=== PATIENT | female | born 1935 | race Caucasian/White ===

== ENCOUNTER → 2017-08-21 | Outpatient (CLI) | payer MEDICARE, OTHER ==
[2017-08-21 12:44] VITALS: PULSE 76; BMI 28.7
--- NOTE | 2017-08-21 13:33 | P.GSHP ---
History of Present Illness H&P Date: 08/21/17 Chief Complaint: breast exam The patient is an 82 year old white female status post bilateral mammogram on 02-10 which was benign. Follow up in 1 year recommended. Patient has no complaints. Patient is status post left breast lumpectomy in 1999, she had radiation. No chemotherapy. She had tamoxifen for 5 years. family history: 1. maternal aunt breast cancer 2. mother pancreatic cancer past surgical histroy: 1. left breast lumpectomy 2. complete hysterectomy took ovaries, no cancer 3. gallbladder medical history: 1. HTN 2. diabetic 3. high cholesterol - Constitutional Constitutional: Denies chills, Denies fever - EENT Eyes: denies blurred vision Ears: deny: decreased hearing Ears, nose, mouth and throat: Denies headache, Denies sore throat - Breasts Breasts: bilateral: as per HPI - Cardiovascular Cardiovascular: Reports high blood pressure - Respiratory Respiratory: Denies cough, Denies 7 - Gastrointestinal Gastrointestinal: Denies abdominal pain, Denies diarrhea, Denies nausea, Denies vomiting - Genitourinary (Female) Genitourinary: Reports as per HPI - Musculoskeletal Musculoskeletal: Denies myalgias - Integumentary Comment: pre-cancers removed by dermatology - Neurological Neurological: Denies numbness, Denies weakness - Psychiatric Psychiatric: Denies anxiety, Denies depression - Endocrine Endocrine: Denies fatigue, Denies weight change - Hematologic/Lymphatic Comment: low dose aspirin - Allergic/Immunologic Comment: allergic to mold Allergic/Immunologic: Reports seasonal allergies Past Medical History Past Medical History: Cancer, Diabetes Mellitus, Hypertension Additional Past Medical History / Comment(s): Left breast cancer History of Any Multi-Drug Resistant Organisms: None Reported Past Surgical History: Appendectomy, Breast Surgery, Hysterectomy Additional Past Surgical History / Comment(s): Gall Bladder 30 years ago, Hysterectomy 25 years ago, Breast surgery 1999 Smoking Status: Never smoker Medications and Allergies Home Medications Medication Instructions Recorded Confirmed Type Aspirin [Adult Low Dose Aspirin EC] 81 tbsp PO DAILY 08/21/17 08/21/17 History Atenolol [Tenormin] 50 tab PO DAILY 08/21/17 08/21/17 History Simvastatin [Zocor] 20 tab PO DAILY 08/21/17 08/21/17 History metFORMIN HCL [Glucophage] 500 tab PO DAILY 08/21/17 08/21/17 History Allergies Allergy/AdvReac Type Severity Reaction Status Date / Time Penicillins Allergy Severe Rash/Hives Unverified 08/21/17 13:03 Surgical - Exam Vital Signs Pulse Pulse Ox 76 98 08/21/17 12:35 08/21/17 12:35 - General well developed, well nourished, no distress - Eyes normal ocular movement - ENT no hearing loss, no congestion - Neck no masses, trachea midline - Respiratory normal respiratory effort, clear to auscultation - Cardiovascular Rhythm: regular Heart Sounds: normal: S1, S2 - Abdomen Abdomen: soft, non tender, no guarding, no rigid, no rebound - Integumentary skin changes left breast related to prior radiation right breast: No dominant masses or concern and multiple positional exam Right axilla: No adenopathy of concern Left breast: Post changes from lumpectomy and radiation therapy no dominant masses or nodules of concern Left axilla: No adenopathy of concern Patient has some minimal excoriation under the breast believed related to moisture she is going to use powder if this gets worse she will call prescribe an antifungal agent - Neurologic no disoriented, no combative - Musculoskeletal normal gait, normal posture - Psychiatric oriented to time, oriented to person, oriented to place, speech is normal, memory intact Results 1. results of mammogram reviewed, 08-21-17 Assessment and Plan Assessment: Impression/plan: 1. Patient is status post left breast lumpectomy and radiation therapy approximately 2000 Evidence of recurrent cancer 2. Recent mammogram no abnormalities of concern Plan: 1. Repeat bilateral diagnostic mammogram and physician exam in 1 year Cc: Dr. Hoang
== END | disposition home or self-care (01) ==
LOC: WWCWWP 12:24
PROVIDERS: ATTEND Surgery
DX: Z88.0 Allergy status to penicillin (principal); Z85.3 Personal history of malignant neoplasm of breast; Z79.82 Long term (current) use of aspirin

== ENCOUNTER → 2017-10-02 | Outpatient (CLI) | payer MEDICARE, OTHER ==
--- NOTE | 2017-10-02 11:26 | PN ---
PROGRESS NOTE DATE OF SERVICE: 10/24/2017 An 82-year-old lady who has been followed in the Sleep Center for treatment of obstructive sleep apnea-hypopnea syndrome. The patient successfully continued to use her equipment every night without any significant problems. No snoring with the machine. [place] Sleepiness Scale today is 3. No symptoms of excessive daytime sleepiness. I checked patient's CPAP unit. CPAP pressure is 9 cm of water. The patient using equipment 100% of the time more than 4 hours. Average usage is 8.1, are our. Many occasions metformin We will write atenolol, simvastatin baby aspirin during. PHYSICAL EXAM: Patient in no distress. BP 153/73, HR 76, RR 16, height 4 feet 11 inches, weight 145.23 pounds less than during the visit 1 year ago. Temperature 97.3. Oxygen saturation at room air 97%. Body mass index 29.2. Oropharynx extremely low position of soft palate. ABDOMEN: Obese under physical exam normal just: My template. IMPRESSION: 1. Obstructive sleep apnea-hypopnea syndrome. Patient demonstrated 100% compliance with treatment benefitting from treatment. 2. Overweight. 3. Diabetes mellitus. 4. Hypertension. 5. Hyperlipidemia. 6. Status post cholecystectomy. 7. Status post left breast lumpectomy. 8. Status post hysterectomy. 9. History of allergy. PLAN: 1. Patient will continue to use your CPAP equipment every night for the whole night. 2. Prescription for the ComfortGel Blue mask via the head cap and other necessary supplies. 3. Sleep hygiene with regular time in bed for at least 8 hours. 4. No driving if feeling sleepiness. 5. Watching and losing weight. 6. Followup visit in 1 year or earlier if patient has any problems. Thank you very much for allowing me to participate in the management of your patient. Sincerely, Temo Torres MD, PhD, FAASM Diplomat of [employer] Chemical Project Engineer of [facility] [place] MMODL / IJN: [id number] /
== END | disposition home or self-care (01) ==
LOC: SLEEP 09:48
PROVIDERS: ATTEND Internal Medicine
DX: G47.33 Obstructive sleep apnea (adult) (pediatric) (principal); E66.3 Overweight; E11.9 Type 2 diabetes mellitus without complications; I10 Essential (primary) hypertension; E78.5 Hyperlipidemia, unspecified; Z90.49 Acquired absence of other specified parts of digestive tract; Z90.12 Acquired absence of left breast and nipple; Z90.710 Acquired absence of both cervix and uterus; Z91.09 Other allergy status, other than to drugs and biological substances; Z99.89 Dependence on other enabling machines and devices

== ENCOUNTER → 2018-10-01 | Outpatient (CLI) | payer MEDICARE, OTHER ==
[2018-10-01 08:49] VITALS: BP 157/64; PULSE 72; RESP 18; TEMP 97.6; BMI 27.9
--- NOTE | 2018-10-01 09:36 | P.PN ---
Subjective Progress Note Date: 10/01/18 Principal diagnosis: left breast cancer The patient is an 83 year old white female status post bilateral mammogram on 08-14-18 which was benign. Follow up in 1 year recommended. Patient has no complaints. Patient is status post left breast lumpectomy in 1999, she had radiation. No chemotherapy. She had tamoxifen for 5 years. family history: 1. maternal aunt breast cancer 2. mother pancreatic cancer Hormonal History: menarche: 14 , bresat fed: no, first at 22 menopauase: hysterectomy in 40's , fibroids no cancer BCP: none hormones: 3 years, tamoxifen for 5 years past surgical histroy: 1. left breast lumpectomy 2. complete hysterectomy took ovaries, no cancer 3. gallbladder medical history: 1. HTN 2. diabetic 3. high cholesterol - Constitutional Constitutional: Denies chills, Denies fever - EENT Eyes: cataracts bilateral Ears: deny: decreased hearing Ears, nose, mouth and throat: Denies headache, Denies sore throat - Breasts Breasts: bilateral: as per HPI - Cardiovascular Cardiovascular: Reports high blood pressure - Respiratory Respiratory: Denies cough, Denies smoking - Gastrointestinal Gastrointestinal: Denies abdominal pain, Denies diarrhea, Denies nausea, Denies vomiting - Genitourinary (Female) Genitourinary: Reports as per HPI - Musculoskeletal Musculoskeletal: Denies myalgias - Integumentary Comment: pre-cancers removed by dermatology - Neurological Neurological: Denies numbness, Denies weakness - Psychiatric Psychiatric: Denies anxiety, Denies depression - Endocrine Endocrine: Denies fatigue, Denies weight change - Hematologic/Lymphatic Comment: low dose aspirin - Allergic/Immunologic Comment: allergic to mold Allergic/Immunologic: Reports seasonal allergies Past Medical History Past Medical History: Cancer, Diabetes Mellitus, Hypertension Additional Past Medical History / Comment(s): Left breast cancer History of Any Multi-Drug Resistant Organisms: None Reported Past Surgical History: Appendectomy, Breast Surgery, Hysterectomy Additional Past Surgical History / Comment(s): Gall Bladder 30 years ago, Hysterectomy 25 years ago, Breast surgery 1999 Smoking Status: Never smoker Social History: smoke: none alcohol: none drugs: none Objective - Vital Signs Vital signs: Vital Signs Temp 97.6 F 10/01/18 08:43 Pulse 72 10/01/18 08:43 Resp 18 10/01/18 08:43 BP 157/64 10/01/18 08:43 Pulse Ox 94 L 10/01/18 08:43 Intake & Output 09/30/18 10/01/18 10/01/18 18:59 06:59 18:59 Weight 64.864 kg - Exam BMI 27.9 - Constitutional General appearance: Present: average body habitus, cooperative - EENT Eyes: Present: EOMI ENT: Present: hearing grossly normal - Neck Neck: Present: normal ROM - Respiratory Respiratory: bilateral: CTA - Cardiovascular Rhythm: regular Heart sounds: normal: S1, S2 - Gastrointestinal General gastrointestinal: Present: soft - Integumentary Integumentary: Present: normal turgor - Musculoskeletal Musculoskeletal: Present: gait normal - Psychiatric Psychiatric: Present: A&O x's 3, appropriate affect, intact judgment & insight - Additional findings Additional findings: Physical examination: Right breast: Well-healed scar right breast, multi-positional exam no dominant masses or nodules of concern, fibrocystic changes Right axilla: No adenopathy of concern Left breast: Asymmetric in size related to lumpectomy and radiation therapy, well-healed scar, no dominant masses or nodules of concern Left axilla: No adenopathy of concern Assessment and Plan Assessment: Impression: 1. HTN 2. diabetic 3. high cholesterol 4. Status post left breast lumpectomy and radiation therapy approximately 20 years ago 5. No evidence of recurrent cancer 6. Family history of cancer 7. Family history of breast cancer Plan: 1. Medical management of medical conditions 2. Continue close surveillance related to breast 2. Repeat bilateral mammogram and exam in 1 year CC: Dr. Hoang
== END | disposition home or self-care (01) ==
LOC: WWCWWP 08:32
PROVIDERS: ATTEND Surgery
DX: Z53.9 Procedure and treatment not carried out, unspecified reason (principal)

== ENCOUNTER → 2018-10-08 | Outpatient (CLI) | payer MEDICARE, OTHER ==
--- NOTE | 2018-10-08 12:37 | SFUN ---
SLEEP CENTER FOLLOW UP NOTE DATE OF SERVICE: 10/08/2018 An 83-year-old lady has been followed in the Sleep Center for treatment of obstructive sleep apnea-hypopnea syndrome. Patient continued to use her CPAP equipment every night for the whole night, but has awakenings around 4:30 am for no reason. She believes that she may have some abnormalities of respiration at that time. [place] Sleepiness Scale is 3. I checked her CPAP unit. CPAP pressure is 9 cm of water. Patient is using equipment every night 100%, average time of usage 8 hours per night. MEDICATIONS: , metformin, atenolol, simvastatin, baby aspirin. PHYSICAL EXAM: lady without distress. BP 149/78, HR 74, RR 16, height 4 and 10-1/2 inches, weight 144 pounds, body mass index 28.5, temperature 97.6, oxygen saturation at room air 98%. OROPHARYNX: Extremely low soft palate, Mallampati 4. ABDOMEN: Slightly obese. IMPRESSION: 1. Obstructive sleep apnea-hypopnea syndrome. Patient demonstrated 100% compliance with treatment, but has awakenings from sleep while using her CPAP equipment. Last sleep study more than 5 years ago. CPAP unit is old, more than 5 years. 2. Hypertension. 3. Diabetes mellitus. 4. Hyperlipidemia. 5. History of allergy. 6. Status post cholecystectomy. 7. Status post hysterectomy. PLAN: 1. CPAP titration for evaluation of effective CPAP pressure at the present time, also to refit patient with a mask. 2. Losing weight. 3. Sleep hygiene with regular time in bed for 8 hours. 4. Precautions related to driving. No driving if feeling sleepiness. Thank you very much for allowing me to participate in the management of your patient. Sincerely, Temo Torres MD, PhD, FAASM Diplomat of [employer] Special[employer] Board of Internal Medicine Consumer Loan Underwriter of [facility] [place] MMODL / IJN: [id number] /
== END | disposition home or self-care (01) ==
LOC: SLEEP 11:33
PROVIDERS: ATTEND Internal Medicine
DX: G47.33 Obstructive sleep apnea (adult) (pediatric) (principal); I10 Essential (primary) hypertension; E11.9 Type 2 diabetes mellitus without complications; E78.5 Hyperlipidemia, unspecified; Z90.49 Acquired absence of other specified parts of digestive tract; Z90.710 Acquired absence of both cervix and uterus; Z91.09 Other allergy status, other than to drugs and biological substances; Z99.89 Dependence on other enabling machines and devices

== ENCOUNTER → 2019-01-28 | Outpatient (CLI) | payer MEDICARE, OTHER ==
--- NOTE | 2019-01-29 08:37 | PN ---
PROGRESS NOTE DATE OF SERVICE: 01/28/2019 An 83-year-old lady has been followed in the Sleep Center for treatment of obstructive sleep apnea-hypopnea syndrome. Recently the patient received new CPAP unit. She is using equipment every night for the whole night. No significant problems with the mask creating pressure or humidification. She is using ComfortGel nasal mask petite size. I checked her CPAP unit. CPAP pressure is 10 cm of water. Usage is 30 out of 30 nights for more than 4 hours, her average use is 7.8 hours per night. CPAP pressure is 10 cm of water. Leak is 24 liters/minute which is borderline for the nasal mask. Apnea- hypopnea index is 2.4 which is perfect. MEDICATIONS: Metformin, atenolol, simvastatin, baby aspirin, vitamins. PHYSICAL EXAM: During physical examination, the patient is in no distress. BP 170/76, HR 80, RR 12, weight 146 pounds, temperature 98.2, oxygen saturation at room air 99%. OROPHARYNX: Extremely low soft palate, Mallampati 4. HEENT: PERRLA, EOMI, evaluation of oropharynx showed tongue protrudes midline. NECK: Supple, no JVD. Thyroid is not palpable. LUNGS: Clear to percussion and to auscultation. Good air exchange. No wheezing or rhonchi. HEART: S1, S2 regular. No murmurs, gallops, or rubs. ABDOMEN: Soft and nontender. Bowel sounds are present. No organomegaly appreciated. Slightly obese. EXTREMITIES: No clubbing or cyanosis. DIMENSIONAL ENGINEER: Awake, alert, and oriented X3. Cranial nerves 2 to 7 intact. There is no fasciculation or atrophy. noted. No focal deficits observed. IMPRESSION: 1. Obstructive sleep apnea-hypopnea syndrome. Patient demonstrated great compliance with treatment, benefiting from treatment. 2. Hypertension. 3. Hyperlipidemia. 4. Diabetes mellitus. 5. History of allergy. 6. Status post cholecystectomy. 7. Status post hysterectomy. PLAN: 1. Prescription for all necessary CPAP supplies including heating tube, mask, filters. I will maintain all necessary prescriptions. 2. The patient will continue to use CPAP equipment every night for the whole night. 3. Watching weight. 4. Sleep hygiene with regular time in bed for at least 7.5 to 8 hours. 5. No driving if feeling sleepiness. 6. Followup visit in one year or earlier if patient has any problems. Thank you very much for allowing me to participate in the management of your patient. Sincerely, Temo Torres MD, PhD, FAASM Diplomat of [employer] Nail Maker of [facility] [place] MMJANIE / LORETTA: [id number] /
== END | disposition home or self-care (01) ==
LOC: SLEEP 13:21
PROVIDERS: ATTEND Internal Medicine
DX: Z53.9 Procedure and treatment not carried out, unspecified reason (principal)

== ENCOUNTER → 2019-09-03 | Outpatient (CLI) | payer MEDICARE, OTHER ==
[2019-09-03 11:01] VITALS: BP 177/75; PULSE 73; RESP 20; TEMP 98.3
--- NOTE | 2019-09-03 11:15 | P.PN ---
Subjective Progress Note Date: 09/03/19 Principal diagnosis: Fibers cystic breasts changes The patient is an 84 year old white female status post bilateral mammogram on 08-20-19 which was benign BIRADS 2. Follow up in 1 year recommended. Patient has no complaints. Patient is status post left breast lumpectomy in 1999, she had radiation. No chemotherapy. She had tamoxifen for 5 years. family history: 1. maternal aunt breast cancer 2. mother pancreatic cancer past surgical histroy: 1. left breast lumpectomy 2. complete hysterectomy took ovaries, no cancer 3. gallbladder medical history: 1. HTN 2. diabetic 3. high cholesterol Social History: smoke: none alcohol: none drugs: none - Constitutional Constitutional: Denies chills, Denies fever - EENT Eyes: denies blurred vision Ears: deny: decreased hearing Ears, nose, mouth and throat: Denies headache, Denies sore throat - Breasts Breasts: bilateral: as per HPI - Cardiovascular Cardiovascular: Reports high blood pressure - Respiratory Respiratory: Denies cough - Gastrointestinal Gastrointestinal: Denies abdominal pain, Denies diarrhea, Denies nausea, Denies vomiting - Genitourinary (Female) Genitourinary: Reports as per HPI - Musculoskeletal Musculoskeletal: Denies myalgias, arthritis - Integumentary Comment: pre-cancers removed by dermatology - Neurological Neurological: Denies numbness, Denies weakness - Psychiatric Psychiatric: Denies anxiety, Denies depression - Endocrine Endocrine: Denies fatigue, Denies weight change - Hematologic/Lymphatic Comment: low dose aspirin - Allergic/Immunologic Comment: allergic to mold Allergic/Immunologic: Reports seasonal allergies Objective - Vital Signs Vital signs: Vital Signs Temp 98.3 F 09/03/19 10:57 Pulse 73 09/03/19 10:57 Resp 20 09/03/19 10:57 BP 177/75 09/03/19 10:57 Pulse Ox 99 09/03/19 10:57 Intake & Output 09/02/19 09/03/19 09/03/19 18:59 06:59 18:59 Weight 65.317 kg - Exam BMI 29.1 - Constitutional General appearance: Present: average body habitus - EENT Eyes: Present: EOMI ENT: Present: hearing grossly normal - Neck Neck: Present: normal ROM - Respiratory Respiratory: bilateral: CTA - Cardiovascular Rhythm: regular Heart sounds: normal: S1, S2 - Gastrointestinal General gastrointestinal: Present: normal bowel sounds, soft - Integumentary Integumentary: Present: normal turgor - Musculoskeletal Musculoskeletal: Present: gait normal - Psychiatric Psychiatric: Present: A&O x's 3, appropriate affect, intact judgment & insight - Additional findings Additional findings: breast exam: BRA: 36C inspection: status post left breast lumpectomy, right breast larger than the left breast, ptosis right grade 3, ptosis left grade 2 Palpation: Right breast: Multi-positional exam fibrocystic changes no dominant masses or nodules of concern Right axilla: No adenopathy of concern Left breast: Post surgical and radiation changes, no dominant masses or nodules of concern Left axilla,: No adenopathy of concern Assessment and Plan Assessment: Impression: 1. Patient status post left breast lumpectomy/radiation therapy/tamoxifen in 1999 for invasive ductal carcinoma; stage I 2. Diabetes 3. High cholesterol Plan: 1. Continue surveillance status post treatment for stage I left breast cancer 2. Follow-up in one year repeat bilateral mammogram 3. They discussed the asymmetric appearance of the breast and at this time the patient does not want any thing done CC: Dr. Hoang encounter 15 minutes, > 50% of time in planning and counselling
== END | disposition home or self-care (01) ==
LOC: WWCWWP 10:42
PROVIDERS: ATTEND Surgery
DX: Z53.9 Procedure and treatment not carried out, unspecified reason (principal)

== ENCOUNTER → 2020-11-03 | Outpatient (CLI) | payer MEDICARE, OTHER ==
[2020-11-03 10:27] VITALS: BP 162/77; PULSE 73; RESP 18; TEMP 98.4
--- NOTE | 2020-11-03 10:44 | P.PN ---
Subjective Progress Note Date: 11/03/20 Principal diagnosis: fibrocystic breast disease Fibers cystic breasts changes The patient is an 85 year old white female status post bilateral mammogram on 09-07-20 which was benign BIRADS 2. Follow up in 1 year recommended. Patient has no complaints. Patient is status post left breast lumpectomy in 1999, she had radiation. No chemotherapy. She had tamoxifen for 5 years. He is not complaining of any lumps masses or nodules in either breast. family history: 1. maternal aunt breast cancer 2. mother pancreatic cancer past surgical history: 1. left breast lumpectomy 2. complete hysterectomy took ovaries, no cancer 3. gallbladder medical history: 1. HTN 2. diabetic 3. high cholesterol Social History: smoke: none alcohol: none drugs: none - Constitutional Constitutional: Denies chills, Denies fever - EENT Eyes: denies blurred vision Ears: deny: decreased hearing Ears, nose, mouth and throat: Denies headache, Denies sore throat - Breasts Breasts: bilateral: as per HPI - Cardiovascular Cardiovascular: Reports high blood pressure - Respiratory Respiratory: Denies cough - Gastrointestinal Gastrointestinal: Denies abdominal pain, Denies diarrhea, Denies nausea, Denies vomiting - Genitourinary (Female) Genitourinary: Reports as per HPI - Musculoskeletal Musculoskeletal: Denies myalgias, arthritis - Integumentary Comment: pre-cancers removed by dermatology - Neurological Neurological: Denies numbness, Denies weakness - Psychiatric Psychiatric: Denies anxiety, Denies depression - Endocrine Endocrine: Denies fatigue, Denies weight change - Hematologic/Lymphatic Comment: low dose aspirin - Allergic/Immunologic Comment: allergic to mold Allergic/Immunologic: Reports seasonal allergies Objective - Vital Signs Vital signs: Vital Signs Temp 98.4 F 11/03/20 10:25 Pulse 73 11/03/20 10:25 Resp 18 11/03/20 10:25 BP 162/77 11/03/20 10:25 Pulse Ox 100 11/03/20 10:25 Intake & Output 11/02/20 11/03/20 11/03/20 18:59 06:59 18:59 Weight 63.957 kg - Exam BMI 27.5 - Constitutional General appearance: Present: cooperative - EENT Eyes: Present: EOMI ENT: Present: hearing grossly normal - Neck Neck: Present: normal ROM - Respiratory Respiratory: bilateral: CTA - Cardiovascular Rhythm: regular Heart sounds: normal: S1, S2 - Gastrointestinal General gastrointestinal: Present: soft - Integumentary Integumentary: Present: normal turgor - Musculoskeletal Musculoskeletal: Present: gait normal - Psychiatric Psychiatric: Present: A&O x's 3, appropriate affect, intact judgment & insight - Additional findings Additional findings: Breast Exam: BRA: 40C inspection: right breast larger than left breast, scar and radiation changes left breast palpation: right breast: multipositional exam right no dominate masses or nodules of concern right axilla: no acenopathy of concern left breast: radiation and surgical changes no evidence of recurrence left axilla: no adenopathy of concern Assessment and Plan Assessment: Impression: 1. HTN 2. diabetic 3. high cholesterol 4. no evidence of recurrent cancer left breast 5. bilateral mammogram 09-07-20 ALLIE 2 Plan: 1. follow up in 1 year 2. follow up sooner if any concerns CC: Dr. Hoang
== END ==
LOC: WWCWWP 10:17
PROVIDERS: ATTEND Surgery
DX: N60.12 Diffuse cystic mastopathy of left breast (principal); I10 Essential (primary) hypertension; E78.5 Hyperlipidemia, unspecified; E78.00 Pure hypercholesterolemia, unspecified; E11.9 Type 2 diabetes mellitus without complications; Z88.0 Allergy status to penicillin

== ENCOUNTER → 2020-11-23 | Outpatient (CLI) | payer MEDICARE, OTHER ==
--- NOTE | 2020-11-23 18:48 | SFUN ---
SLEEP CENTER FOLLOW UP NOTE DATE OF SERVICE: 11/23/2020 This 85-year-old lady has been followed in Sleep Center for treatment of obstructive sleep apnea-hypopnea syndrome. The patient continues to use her CPAP equipment every night. I saw this patient about 2 years ago. No significant problems with the machine. No snoring. [place] Sleepiness Scale today is 6, which is in normal range. I checked the CPAP unit. CPAP pressure is 10 cm of water. Usage is 29/30 nights for more than 4 hours, average 8.3 hours per night. Leak is 22 L/minute, which is borderline. Apnea-hypopnea index is 2.6, which is totally normal. MEDICATIONS: Aspirin 81 mg once a day, simvastatin, atenolol, lisinopril, metformin twice a day, glipizide. PHYSICAL EXAMINATION: GENERAL: Pleasant patient in no distress. VITAL SIGNS: BP 149/78, HR 82, RR 12. Height 4 feet 11 inches, weight 141.4, body mass index 28.4. The patient lost about 5 pounds since her visit 2 years ago. Temperature 97.2, oxygen saturation at room air 99%. HEENT: PERRLA, EOMI, evaluation of oropharynx showed tongue protrudes midline. Extremely low position of soft palate; Mallampati IV. NECK: Supple, no JVD. Thyroid is not palpable. LUNGS: Clear to percussion and to auscultation. Good air exchange. No wheezing or rhonchi. HEART: S1, S2 regular. No murmurs, gallops, or rubs. ABDOMEN: Not obese. EXTREMITIES: No clubbing or cyanosis. CONTRACTS ATTORNEY: Awake, alert, and oriented X3. Cranial nerves 2 to 7 intact. There is no fasciculation or atrophy. noted. No focal deficits observed. IMPRESSION: 1. Obstructive sleep apnea-hypopnea syndrome. Patient demonstrated great compliance with treatment, benefitting from treatment. 2. Hypertension. 3. Diabetes mellitus. 4. Hyperlipidemia. 5. History of allergies. 6. Status post cholecystectomy. 7. Status post hysterectomy. PLAN: 1. Patient will continue to use PAP equipment every night for the whole night. 2. Sleep hygiene with regular time in bed for at least 7-1/2 to 8 hours. 3. Precautions related to driving. No driving if feeling sleepiness. 4. I will maintain all necessary prescription for PAP supplies including mask, tube, filters. 5. Watching weight. 6. Follow-up visit in 6 months or earlier if patient has any problems. Thank you very much for allowing me to participate in the management of your patient. Sincerely, Temo Torres MD, PhD, FAASM Diplomat of [employer] [place] [employer] [employer] Sleep Medicine Board of [employer] [place] Medicine Obstetrician of [facility] [place] MMODL / LORETTA: [id number] /
== END ==
LOC: SLEEP 14:32
PROVIDERS: ATTEND Internal Medicine
DX: G47.33 Obstructive sleep apnea (adult) (pediatric) (principal); I10 Essential (primary) hypertension; E11.9 Type 2 diabetes mellitus without complications; E78.5 Hyperlipidemia, unspecified; Z90.49 Acquired absence of other specified parts of digestive tract; Z90.711 Acquired absence of uterus with remaining cervical stump; Z87.892 Personal history of anaphylaxis; Z99.89 Dependence on other enabling machines and devices; Z79.84 Long term (current) use of oral hypoglycemic drugs; Z79.899 Other long term (current) drug therapy; Z88.0 Allergy status to penicillin

== ENCOUNTER → 2021-05-24 | Outpatient (CLI) | payer MEDICARE, OTHER ==
--- NOTE | 2021-05-24 15:41 | SFUN ---
SLEEP CENTER FOLLOW UP NOTE DATE OF SERVICE: 05/24/2021. 85-year-old lady has been followed in Sleep Center for treatment of obstructive sleep apnea-hypopnea syndrome. The patient continues to use her equipment every night getting her supplies in time, using her air filter in time. [place] Sleepiness Scale today is 7 which is normal range. I checked her CPAP unit. Pressure is 10 cm of water. Usage is 30/30 nights for more than 4 hours, average 8.1 hours per night. Leak is increased to 28 L/minute. Apnea- hypopnea index is in normal range 3.3. MEDICATIONS: Glipizide-metformin 5-500 mg twice a day, atenolol 50 mg once a day, simvastatin 20 mg once a day, lisinopril 5 mg once a day, aspirin 81 mg once a day. PHYSICAL EXAMINATION: GENERAL: lady without distress. BP 135/75, HR 86, RR 16, weight 138.8, height 4 feet 11 inches, temperature 97.0, oxygen saturation at room air 100%. Oropharynx: Extremely low position of soft palate, Mallampati 4. NECK: Supple, no JVD. Thyroid is not palpable. LUNGS: Clear to percussion and to auscultation. Good air exchange. No wheezing or rhonchi. HEART: S1, S2 regular. No murmurs, gallops, or rubs. ABDOMEN: Soft and nontender. Bowel sounds are present. No organomegaly appreciated. EXTREMITIES: No clubbing or cyanosis. LOGISTICS OPERATIONS MANAGER: Awake, alert, and oriented X3. Cranial nerves 2 to 7 intact. There is no fasciculation or atrophy. noted. No focal deficits observed. IMPRESSION: 1. Obstructive sleep apnea-hypopnea syndrome patient demonstrated 100% compliance with treatment benefitting from treatment. 2. Diabetes mellitus. 3. Hypertension. 4. Hyperlipidemia. 5. History of ALLERGIES. 6. Status post cholecystectomy. 7. Status post hysterectomy. PLAN: 1. Patient will continue to use PAP equipment every night for the whole night. 2. Sleep hygiene with regular time in bed for at least 7-1/2 to 8 hours. 3. Precautions related to driving. No driving if feeling sleepiness. 4. I will maintain all necessary prescription for PAP supplies including mask, tube, filters. 5. Watching weight. 6. Follow-up visit in 6 months or earlier if patient has any problems. Thank you very much for allowing me to participate in management of your patient. Sincerely, Temo Torres MD, PhD, FAASM Diplomat of [employer] Sleep Medicine Board of [employer] Template Checker of [facility] [place] ASA / LORETTA: [id number] /
== END ==
LOC: SLEEP 11:24
PROVIDERS: ATTEND Internal Medicine
DX: G47.33 Obstructive sleep apnea (adult) (pediatric) (principal); E11.9 Type 2 diabetes mellitus without complications; I10 Essential (primary) hypertension; E78.5 Hyperlipidemia, unspecified; Z90.49 Acquired absence of other specified parts of digestive tract; Z90.711 Acquired absence of uterus with remaining cervical stump; Z87.892 Personal history of anaphylaxis; Z99.89 Dependence on other enabling machines and devices; Z79.84 Long term (current) use of oral hypoglycemic drugs

== ENCOUNTER → 2021-11-22 | Outpatient (CLI) | payer MEDICARE, OTHER ==
[2021-11-22 16:02] VITALS: BP 157/78; PULSE 80; RESP 18; TEMP 98.3
--- NOTE | 2021-11-22 16:08 | P.PN ---
Subjective Progress Note Date: 11/22/21 Principal diagnosis: left breast cancer 1999 ? stage Fibrocystic breasts changes The patient is an 86 year old white female status post bilateral mammogram on 09-28-21 at [facility] which was benign BIRADS 2. Follow up in 1 year recommended. Patient has no complaints. Patient is status post left breast lumpectomy in 1999, she had radiation. No chemotherapy. She had tamoxifen for 5 years. She is not complaining of any lumps masses or nodules in either breast. family history: 1. maternal aunt breast cancer 2. mother pancreatic cancer past surgical history: 1. left breast lumpectomy 2. complete hysterectomy took ovaries, no cancer 3. gallbladder medical history: 1. HTN 2. diabetic 3. high cholesterol 4. anemia being worked up Social History: smoke: none alcohol: none drugs: none - Constitutional Constitutional: Denies chills, Denies fever - EENT Eyes: denies blurred vision Ears: deny: decreased hearing Ears, nose, mouth and throat: Denies headache, Denies sore throat - Breasts Breasts: bilateral: as per HPI - Cardiovascular Cardiovascular: Reports high blood pressure - Respiratory Respiratory: Denies cough - Gastrointestinal Gastrointestinal: Denies abdominal pain, Denies diarrhea, Denies nausea, Denies vomiting - Genitourinary (Female) Genitourinary: Reports as per HPI - Musculoskeletal Musculoskeletal: Denies myalgias, arthritis - Integumentary Comment: pre-cancers removed by dermatology - Neurological Neurological: Denies numbness, Denies weakness - Psychiatric Psychiatric: Denies anxiety, Denies depression - Endocrine Endocrine: Denies fatigue, Denies weight change - Hematologic/Lymphatic Comment: low dose aspirin - Allergic/Immunologic Comment: allergic to mold Allergic/Immunologic: Reports seasonal allergies Objective - Constitutional General appearance: Present: cooperative - EENT Eyes: Present: EOMI ENT: Present: hearing grossly normal - Neck Neck: Present: normal ROM - Respiratory Respiratory: bilateral: CTA - Cardiovascular Rhythm: regular Heart sounds: normal: S1, S2 - Integumentary Integumentary: Present: normal turgor - Musculoskeletal Musculoskeletal: Present: gait normal - Psychiatric Psychiatric: Present: A&O x's 3, appropriate affect, intact judgment & insight - Additional findings Additional findings: Breast Exam: BRA; 36C Inspection: asymmetry of the breast related to left breast cancer lumpectmy; bilateral grade 2/3 ptosis Palpation: Right breast: Multiple positional exam fibrocystic changes no dominant masses or nodules of concern Right axilla: No adenopathy of concern Left breast: Post radiation and surgical changes no dominant masses or nodules of concern Left axilla: No adenopathy of concern Assessment and Plan Assessment: Impression: Patient status post left breast lumpectomy radiation therapy for most likely early stage left breast cancer, no evidence of recurrence Recent bilateral mammogram benign BIRADS 2 Plan: Repeat bilateral mammogram in 1 year Patient to follow up sooner any questions or concerns CC: Dr. Hoang
== END | disposition home or self-care (01) ==
LOC: WWCWWP 15:52
PROVIDERS: ATTEND Surgery
DX: Z53.9 Procedure and treatment not carried out, unspecified reason (principal)

== ENCOUNTER → 2022-05-23 | Outpatient (CLI) | payer MEDICARE ==
--- NOTE | 2022-05-23 11:06 | P.PN ---
Subjective DATE: 05/23/2022 FOLLOW UP VISIT. Patient with obstructive sleep apnea hypopnea syndrome return to sleep center for follow-up visit. Information from previous visit have been reviewed. Patient is using PAP equipment every night for the whole night, getting PAP supplies in time. The patient does not have significant problems with the mask, PAP unit and humidification. [place] sleepiness scale is 7, which is normal. I checked information from PAP unit and explained it to the patient in details. PAP unit pressure 10 cm H2O. Usage is 97 % for more then 4 hours, average 8.5 hours per night. Leak is 22.5 l/m, which is in acceptable range. Apnea Hypopnea Index is to 0.2, which is normal. MEDICATIONS:1. Atenolol 50 mg once a day 2. Simvastatin 20 mg once a day 3. Lisinopril 5 mg once a day 4. Metformin 500 mg twice a day 5. Glipizide 5 mg twice a day During physical exam: GENERAL: A pleasant patient without any distress. VITAL SIGNS: BP 151/79, HR 64, RR 16 , weight 137, temperature 98.1, oxygen saturation at room air 98 %, body mass index 27.6 . HEENT: PERRLA, EOMI.low position of soft palate, Mallapati 4 . NECK: Supple. No JVD. LUNGS: Clear to percussion and to auscultation. Good air exchange. No wheezing or rhonchi. HEART: S1, S2 regular. ABDOMEN: Soft and nontender.[] EXTREMITIES: No clubbing or cyanosis. FLORAL DESIGNER: Awake, alert, and oriented x3. No focal deficit. Impressions: 1. Obstructive sleep apnea-hypopnea syndrome. Patient demonstrated great compliance with treatment, benefiting from treatment. 2. Hypertension. 3. Hyperlipidemia. 4. Diabetes mellitus. 5. History of ALLERGIES. 6. Status post hysterectomy. 7. Status post cholecystectomy. Plan: 1. Continue using PAP equipment every night for the whole night. 2. To change air filter at least 1-2 times per month. 3. PAP unit should stay lower then position of the head. 4. Advised patient to remove all remaining water from humidifier canister daily and make it dry after each usage. Refill canister with fresh distilled water before each usage. 5. Sleep hygiene with regular time in bed for at least 8 hours. 6. Precautions related to driving. No driving if feel any sleepiness. 7. I will maintain prescription for PAP supplies including mask, tube, filters. 8. Watching weight. 9. Follow up visit in 6 months or earlier if patient has any problems. Thank you very much for allowing me to participate in the management of your patient. Temo Torres MD, PhD, FAASM. Diplomat of [employer] Medicine, Sleep Medicine Board by [employer] Board of Internal Medicine Tribunal Member of [facility] [place]
== END ==
LOC: SLEEP 10:29
PROVIDERS: ATTEND Internal Medicine
DX: G47.33 Obstructive sleep apnea (adult) (pediatric) (principal); I10 Essential (primary) hypertension; E11.9 Type 2 diabetes mellitus without complications; E78.5 Hyperlipidemia, unspecified; Z79.84 Long term (current) use of oral hypoglycemic drugs; Z79.899 Other long term (current) drug therapy; Z90.49 Acquired absence of other specified parts of digestive tract; Z90.710 Acquired absence of both cervix and uterus; Z99.89 Dependence on other enabling machines and devices; Z88.0 Allergy status to penicillin
CPT/HCPCS: 99212

== ENCOUNTER → 2022-10-25 | Outpatient (CLI) | payer MEDICARE ==
--- NOTE | 2022-10-25 13:16 | MM ---
Reason for Exam: Hx of breast cancer, conservation therapy. Last mammogram was performed 2 year(s) and 2 month(s) ago. Patient History: Menarche at age 14. First Full-Term at age 22. Left ovary removed at age 52. Right ovary removed at age 52. Hysterectomy at age 52. Postmenopausal. Breast cancer, left, age 64. 1999, Lumpectomy on the Left side. 1999, Radiation Therapy on the left side. Maternal aunt had breast cancer, age 50. Tissue Density: The breast tissue is heterogeneously dense. This may lower the sensitivity of mammography. Findings: Analyzed By CAD. Posttreatment changes of the left breast. Benign calcifications within both breasts. No new suspicious mass or worrisome group of calcifications within either breast. Overall Assessment: Benign, BI-RAD 2 Management: Screening Mammogram of both breasts in 1 year. A clinical breast exam by your physician is recommended on an annual basis and results should be correlated with mammographic findings. This exam should not preclude additional follow-up of suspicious palpable abnormalities. Results were given to the patient verbally at the time of exam. Electronically signed and approved by: Sae Will D.O.
== END | disposition home or self-care (01) ==
LOC: RADMAMWWP 12:40
PROVIDERS: ATTEND Surgery
DX: R92.2 Inconclusive mammogram (principal); Z78.0 Asymptomatic menopausal state; Z80.3 Family history of malignant neoplasm of breast; Z85.3 Personal history of malignant neoplasm of breast
CPT/HCPCS: 77066; G0279; 77062

== ENCOUNTER → 2022-12-05 | Outpatient (CLI) | payer MEDICARE ==
--- NOTE | 2022-12-05 11:02 | P.PN ---
Subjective DATE: 12/05/2022 FOLLOW UP VISIT. Patient with obstructive sleep apnea hypopnea syndrome return to sleep center for follow-up visit. Information from previous visit have been reviewed. Patient is using PAP equipment every night for the whole night, getting PAP supplies in time. The patient does not have significant problems with the mask, PAP unit and humidification. Recently patient started to wake up in the middle of the night's and sometimes has difficulties to reinitiate sleep again . [place] sleepiness scale is 5. I checked information from PAP unit. PAP unit pressure 10 cm H2O. Usage is 100 % for more then 4 hours, average 8.8 hours per night. Leak is 19 l/m, which is in acceptable range. Apnea Hypopnea Index is 2.3, which is normal. MEDICATIONS:1. Glipizide/metformin twice a day 2. Atenolol 3. Simvastatin 20 mg once a day 4. Lisinopril 5 mg once a day During physical exam: GENERAL: A pleasant patient without any distress. VITAL SIGNS: BP 122/76, HR 74, RR 16 , weight 138.2, temperature 97.2, oxygen saturation at room air 98 % . HEENT: PERRLA, EOMI.low position of soft palate, Mallapati 4 . NECK: Supple. No JVD. LUNGS: Clear to percussion and to auscultation. Good air exchange. No wheezing o r rhonchi. HEART: S1, S2 regular. ABDOMEN: Soft and nontender.[] EXTREMITIES: No clubbing or cyanosis. LOSS PREVENTION COORDINATOR: Awake, alert, and oriented x3. No focal deficit. I changed regimen of CPAP unit to automatic with the range of the pressure 5-12 cm of water. Impressions: 1. Obstructive sleep apnea-hypopnea syndrome. Patient demonstrated great compliance with treatment, benefiting from treatment. 2. Hypertension. 3. Diabetes mellitus. 4. Hyperlipidemia. 5. History of ALLERGIES. 6. Status post cholecystectomy. 7. Status post hysterectomy. Plan: 1. Continue using PAP equipment every night for the whole night. 2. To change air filter at least 1-2 times per month. 3. PAP unit should stay lower then position of the head. 4. Advised patient to remove all remaining water from humidifier canister daily and make it dry after each usage. Refill canister with fresh distilled water before each usage. 5. Sleep hygiene with regular time in bed for at least 8 hours. 6. Precautions related to driving. No driving if feel any sleepiness. 7. I will maintain prescription for PAP supplies including mask, tube, filters. 8. Follow up visit in 4 months or earlier if patient has any problems. 9. Watching weight. Thank you very much for allowing me to participate in the management of your patient. Temo Torres MD, PhD, FAASM. Diplomat of [place] [employer] Medicine, Sleep Medicine Board by [place] [employer] Medicine Costuming Supervisor of [facility] [place]
== END ==
LOC: 3 N SLEEP 10:16
PROVIDERS: ATTEND Internal Medicine
DX: G47.33 Obstructive sleep apnea (adult) (pediatric) (principal); I10 Essential (primary) hypertension; E78.5 Hyperlipidemia, unspecified; E11.9 Type 2 diabetes mellitus without complications; Z79.84 Long term (current) use of oral hypoglycemic drugs; Z79.899 Other long term (current) drug therapy; Z90.49 Acquired absence of other specified parts of digestive tract; Z90.710 Acquired absence of both cervix and uterus; Z99.89 Dependence on other enabling machines and devices; Z88.0 Allergy status to penicillin
CPT/HCPCS: 99212

== ENCOUNTER → 2023-04-17 | Outpatient (CLI) | payer MEDICARE ==
--- NOTE | 2023-04-17 13:34 | P.PN ---
Subjective DATE: 04/17/2023 FOLLOW UP VISIT. Patient with obstructive sleep apnea hypopnea syndrome return to sleep center for follow-up visit. Information from previous visit have been reviewed. Patient is using PAP equipment every night for the whole night, getting PAP supplies in time. The patient does not have significant problems with the mask, PAP unit and humidification. [place] sleepiness scale is 3. I checked information from PAP unit. PAP unit pressure 5-12, average 11.7 cm H2O. Usage is 100 % for more then 4 hours, average 8.9 hours per night. Leak is 24 l/m, which is in acceptable range. Apnea Hypopnea Index is 2.3, which is normal. MEDICATIONS:1. Lisinopril 2. Simvastatin 3. Atenolol 4. Glipizide/metformin During physical exam: GENERAL: A pleasant patient without any distress. VITAL SIGNS: BP 147/70, HR 88, RR 12 , weight 135.2, temperature 98.3, oxygen saturation at room air 98 % . HEENT: PERRLA, EOMI.low position of soft palate, Mallapati 4 . NECK: Supple. No JVD. LUNGS: Clear to percussion and to auscultation. Good air exchange. No wheezing or rhonchi. HEART: S1, S2 regular. ABDOMEN: Soft and nontender. EXTREMITIES: No clubbing or cyanosis. ROAD ENGINEER FREIGHT: Awake, alert, and oriented x3. No focal deficit. Impressions: 1. Obstructive sleep apnea-hypopnea syndrome. Patient demonstrated great compliance with treatment, benefiting from treatment. 2. Hypertension. 3. Diabetes mellitus. 4. History of ALLERGIES. 5. Hyperlipidemia. 6. Status post hysterectomy. 7. Status post cholecystectomy. Plan: 1. Continue using PAP equipment every night for the whole night. 2. To change air filter at least 1-2 times per month. 3. PAP unit should stay lower then position of the head. 4. Advised patient to remove all remaining water from humidifier canister daily and make it dry after each usage. Refill canister with fresh distilled water before each usage. 5. Sleep hygiene with regular time in bed for at least 8 hours. 6. Precautions related to driving. No driving if feel any sleepiness. 7. I will maintain prescription for PAP supplies including mask, tube, filters. 8. Watching weight. 9. Follow up visit in 6 months or earlier if patient has any problems. Thank you very much for allowing me to participate in the management of your patient. Temo Torres MD, PhD, FAASM. Diplomat of [place] Board [employer] Sleep Medicine, Sleep Medicine Board by [place] Board of Internal Medicine Soaking Tank Worker of [facility] [place]
== END ==
LOC: 3 N SLEEP 11:53
PROVIDERS: ATTEND Internal Medicine
DX: G47.33 Obstructive sleep apnea (adult) (pediatric) (principal); I10 Essential (primary) hypertension; E11.9 Type 2 diabetes mellitus without complications; E78.5 Hyperlipidemia, unspecified; Z90.49 Acquired absence of other specified parts of digestive tract; Z90.710 Acquired absence of both cervix and uterus; Z91.09 Other allergy status, other than to drugs and biological substances; Z99.89 Dependence on other enabling machines and devices; Z98.890 Other specified postprocedural states; Z79.899 Other long term (current) drug therapy; Z79.84 Long term (current) use of oral hypoglycemic drugs; Z88.0 Allergy status to penicillin; Z79.82 Long term (current) use of aspirin
CPT/HCPCS: 99212

== ENCOUNTER → 2023-11-13 | Outpatient (CLI) | payer MEDICARE ==
[2023-11-13 11:45] VITALS: BP 145/66; PULSE 67; RESP 16; TEMP 98.1
--- NOTE | 2023-11-13 12:19 | P.PROGSL ---
Subjective DATE: 11/13/2023 FOLLOW UP VISIT. Patient with obstructive sleep apnea hypopnea syndrome return to sleep center for follow-up visit. Information from previous visit have been reviewed. Patient is using PAP equipment every night for the whole night, getting PAP supplies in time. Machine creates noise at the moment when it started, later noise disappearing. [place] sleepiness scale is 6, which is normal. I checked information from PAP unit. PAP unit pressure 5-12, average 11.9 cm H2O. Usage is 100% for more then 4 hours, average 9 hours per night. Leak is 29 l/m, which is in acceptable range. Apnea Hypopnea Index is 1.4, which is normal. MEDICATIONS have been reviewed, please see below. During physical exam: GENERAL: A pleasant patient without any distress. VITAL SIGNS: Please see below, weight is 127.8 lbs. HEENT: PERRLA, EOMI.low position of soft palate, Mallapati 4 . NECK: Supple. No JVD. LUNGS: Clear to percussion and to auscultation. Good air exchange. No wheezing or rhonchi. HEART: S1, S2 regular. ABDOMEN: Soft and nontender.[] EXTREMITIES: No clubbing or cyanosis. NAILER MACHINE: Awake, alert, and oriented x3. No focal deficit. Impressions: 1. Obstructive sleep apnea-hypopnea syndrome. Patient demonstrated great compliance with treatment, benefiting from treatment. 2. Hypertension. 3. Diabetes mellitus. 4. Hyperlipidemia. 5. History of allergies. 6. Status post cholecystectomy. 7. Status post hysterectomy. Plan: 1. Continue using PAP equipment every night for the whole night. 2. Sleep hygiene with regular time in bed for at least 7.5-8 hours 3. PAP unit should stay lower then position of the head. 4. Advised patient to remove all remaining water from humidifier canister daily and make it dry after each usage. Refill canister with fresh distilled water before each usage. 5. Watching weight. 6. Precautions related to driving. No driving if feel any sleepiness. 7. I will maintain prescription for PAP supplies including mask, tube, filters. 8. Follow up visit in 4 months or earlier if patient has any problems. Thank you very much for allowing me to participate in the management of your patient. Temo Torres MD, PhD, FAASM. Diplomat of [place] Board of Sleep Medicine, Sleep Medicine Board by [employer] Board of Internal Medicine Vocational Rehabilitation Technician of [facility] [place] Objective - Vital Signs Vital Signs: Vital Signs Temp 98.1 F 11/13/23 11:44 Pulse 67 11/13/23 11:44 Resp 16 11/13/23 11:44 BP 145/66 11/13/23 11:44 Pulse Ox 99 11/13/23 11:44 FiO2 Intake & Output 11/12/23 11/13/23 11/13/23 18:59 06:59 18:59 Weight 57.833 kg Home Medications: Home Medications Medication Instructions Recorded Confirmed Type Aspirin [Adult Low Dose Aspirin EC] 81 tbsp PO DAILY 08/21/17 11/22/21 History Simvastatin [Zocor] 20 tab PO DAILY 08/21/17 11/13/23 History atenoloL [Tenormin] 50 tab PO DAILY 08/21/17 11/13/23 History Multivitamin [Multivitamins Adult 1 each PO DAILY 10/01/18 11/22/21 History Gummies] Ubidecarenone [Co Q-10] 100 mg PO DAILY 10/01/18 11/22/21 History Calcium Carbonate/Vitamin D3 1 tab PO DAILY 09/03/19 11/22/21 History [Calcium 250-D Tablet] Repaglinide 1 mg PO BID 11/22/21 11/22/21 History lisinopriL [Zestril] 5 mg PO DAILY 11/22/21 11/13/23 History metFORMIN HCL 1,000 mg PO DAILY 11/22/21 11/22/21 History glipiZIDE/METFORMIN HCL See Rx Instructions .ROUTE .COMPLEX 11/13/23 11/13/23 History [glipiZIDE/METFORMIN HCL 5-500 mg]
== END ==
LOC: 3 N SLEEP 11:29
PROVIDERS: ATTEND Internal Medicine
CPT/HCPCS: 99212

== ENCOUNTER → 2023-11-14 | Outpatient (CLI) | payer MEDICARE ==
--- NOTE | 2023-11-14 10:35 | MM ---
Reason for Exam: Hx of breast cancer, conservation therapy. Last screening mammogram was performed 12 month(s) ago. Patient History: Menarche at age 14. First Full-Term at age 22. Left ovary removed at age 52. Right ovary removed at age 52. Hysterectomy at age 52. Postmenopausal. Breast cancer, left, age 64. 1999, Lumpectomy on the Left side. 1999, Radiation Therapy on the left side. Maternal aunt had breast cancer, age 50. Prior Study Comparison: 08/14/2018 Bilateral Screening Mammogram, Unknown. 08/20/2019 Bilateral Screening Mammogram, [facility]. 09/14/2020 Bilateral Screening Mammogram, [facility]. 10/25/2022 Bilateral MG 3D diag mammo w/cad [facility], [facility]. Tissue Density: The breasts are heterogeneously dense, which may obscure small masses. Findings: Analyzed By CAD. The pattern is stable. Left breast is smaller than the right. Multiple spherical calcifications are present bilaterally. Scattered benign coarse calcifications are present. No significant interval changes are evident. No suspicious groups of microcalcifications, spiculated or lobular masses, architectural distortion or other secondary signs of malignancy are mammographically apparent. Overall Assessment: Benign, BI-RAD 2 Management: Screening Mammogram of both breasts in 1 year. A negative mammogram report should not preclude additional follow up of suspicious palpable abnormalities. Patient should continue monthly self breast exam. A clinical breast exam by your physician is recommended on an annual basis and results should be correlated with mammographic findings. Note on Maggie scores and lifetime risk: 1. A Maggie score greater than 3% is considered moderate risk. If this is the case, consider specialist referral to assess eligibility for a risk reducing agent. 2. If overall lifetime risk for the development of breast cancer is 20% or higher, the patient may qualify for future screening with alternating mammogram and breast MRI. [facility], , 11/14/2023 10:32 AM. Electronically signed and approved by: Rob Navarro D.O. Radiologis
== END | disposition home or self-care (01) ==
LOC: RADMAMWWP 10:13
PROVIDERS: ATTEND Surgery
DX: Z85.3 Personal history of malignant neoplasm of breast
CPT/HCPCS: 77062; 77066

== ENCOUNTER → 2024-03-04 | Outpatient (CLI) | payer MEDICARE ==
[2024-03-04 11:39] VITALS: BP 174/65; PULSE 80; RESP 16; TEMP 97.8
--- NOTE | 2024-03-04 13:38 | P.PROGSL ---
Subjective DATE: 03/04/2024 FOLLOW UP VISIT. Patient with obstructive sleep apnea hypopnea syndrome return to sleep center for follow-up visit. Information from previous visit have been reviewed. Patient is using PAP equipment every night for the whole night, getting PAP supplies in time. The patient does not have significant problems with the mask. Patient nausea during the night possibly secondary to humidifier issues. Russell sleepiness scale is 5, which is normal. I checked information from PAP unit. PAP unit pressure 5-12, average 11.9 cm H2O. Usage is 100% for more then 4 hours, average 8.6 hours per night. Leak is 26 l/m, which is in acceptable range. Apnea Hypopnea Index is 1.7, which is normal. MEDICATIONS have been reviewed, please see below. During physical exam: GENERAL: A pleasant patient without any distress. VITAL SIGNS: Please see below, weight is 135 lbs. HEENT: PERRLA, EOMI.low position of soft palate, Mallapati 4 . NECK: Supple. No JVD. LUNGS: Clear to percussion and to auscultation. Good air exchange. No wheezing or rhonchi. HEART: S1, S2 regular. ABDOMEN: Soft and nontender.[] EXTREMITIES: No clubbing or cyanosis. QUALITY CONTROL CLERK: Awake, alert, and oriented x3. No focal deficit. Impressions: 1. Obstructive sleep apnea-hypopnea syndrome. Patient demonstrated great compliance with treatment, benefiting from treatment. CPAP unit is noisy secondary possibly to humidifier issue. 2. Hypertension. 3. Diabetes mellitus. 4. Hyperlipidemia. 5. History of allergies. 6. Status post hysterectomy. 7. Status post cholecystectomy. Plan: 1. Continue using PAP equipment every night for the whole night. Prescription to fix or if necessary to replace CPAP unit to new one secondary to noise and possibly humidifier issues. 2. Sleep hygiene with regular time in bed for at least 7.5-8 hours 3. PAP unit should stay lower then position of the head. 4. Advised patient to remove all remaining water from humidifier canister daily and make it dry after each usage. Refill canister with fresh distilled water before each usage. 5. Watching weight. 6. Precautions related to driving. No driving if feel any sleepiness. 7. I will maintain prescription for PAP supplies including mask, tube, filters. Thank you very much for allowing me to participate in the management of your patient. Temo Torres MD, PhD, FAASM. Diplomat of [employer], Sleep Medicine Board by [employer] Kitchen Food Assembler of [facility] [place] Objective - Vital Signs Vital Signs: Vital Signs Temp 97.8 F 03/04/24 11:36 Pulse 80 03/04/24 11:36 Resp 16 03/04/24 11:36 BP 174/65 03/04/24 11:36 Pulse Ox 100 03/04/24 11:36 FiO2 Intake & Output 03/03/24 03/04/24 03/04/24 18:59 06:59 18:59 Weight 61.235 kg Home Medications: Home Medications Medication Instructions Recorded Confirmed Type Aspirin [Adult Low Dose Aspirin EC] 81 tbsp PO DAILY 08/21/17 11/22/21 History Simvastatin [Zocor] 20 tab PO DAILY 08/21/17 03/04/24 History atenoloL [Tenormin] 50 tab PO DAILY 08/21/17 03/04/24 History Multivitamin [Multivitamins Adult 1 each PO DAILY 10/01/18 11/22/21 History Gummies] Ubidecarenone [Co Q-10] 100 mg PO DAILY 10/01/18 11/22/21 History Calcium Carbonate/Vitamin D3 1 tab PO DAILY 09/03/19 11/22/21 History [Calcium 250-D Tablet] Repaglinide 1 mg PO BID 11/22/21 11/22/21 History lisinopriL [Zestril] 5 mg PO DAILY 11/22/21 03/04/24 History metFORMIN HCL 1,000 mg PO DAILY 11/22/21 11/22/21 History glipiZIDE/METFORMIN HCL See Rx Instructions .ROUTE .COMPLEX 11/13/23 03/04/24 History [glipiZIDE/METFORMIN HCL 5-500 mg] Ferrous Sulfate [Iron (65 MG 65 mg PO DAILY 03/04/24 03/04/24 History Elemental)]
== END ==
LOC: 3 N SLEEP 10:52
PROVIDERS: ATTEND Internal Medicine
DX: G47.33 Obstructive sleep apnea (adult) (pediatric) (principal); I10 Essential (primary) hypertension; E11.9 Type 2 diabetes mellitus without complications; E78.5 Hyperlipidemia, unspecified; Z91.09 Other allergy status, other than to drugs and biological substances; Z90.49 Acquired absence of other specified parts of digestive tract; Z90.710 Acquired absence of both cervix and uterus; Z99.89 Dependence on other enabling machines and devices
CPT/HCPCS: 99212

== ENCOUNTER → 2024-06-16 | Outpatient (CLI) | payer MEDICARE ==
[2024-06-16 11:35] VITALS: BP 156/84; PULSE 88; RESP 16; TEMP 97.5
--- NOTE | 2024-06-16 12:09 | P.PROGSL ---
Subjective DATE: 06/16/2024 FOLLOW UP VISIT. Patient with obstructive sleep apnea hypopnea syndrome return to sleep center for follow-up visit. This is first visit after patient received new CPAP unit. Information from previous visit have been reviewed. Patient is using PAP equipment every night for the whole night, getting PAP supplies in time. The patient does not have significant problems with the mask, PAP unit and humidification. [place] sleepiness scale is 7. I checked information from PAP unit. PAP unit pressure 5-12, average 11.7 cm H2O. Usage is 100% for more then 4 hours, average 8.10 hours per night. Leak is 27.8 l/m, which is in acceptable range. Apnea Hypopnea Index is 2.4, which is normal. MEDICATIONS have been reviewed, please see below. During physical exam: GENERAL: A pleasant patient without any distress. VITAL SIGNS: Please see below, weight is 137 lbs. HEENT: PERRLA, EOMI.low position of soft palate, Mallapati 4 . NECK: Supple. No JVD. LUNGS: Clear to percussion and to auscultation. Good air exchange. No wheezing or rhonchi. HEART: S1, S2 regular. ABDOMEN: Soft and nontender.[] EXTREMITIES: No clubbing or cyanosis. UNIFORM ROOM ATTENDANT: Awake, alert, and oriented x3. No focal deficit. Impressions: 1. Obstructive sleep apnea-hypopnea syndrome. Patient demonstrated great compliance with treatment, benefiting from treatment. 2. Hypertension. 3. Diabetes mellitus, hemoglobin A1c according to patient 6.9. 4. Hyperlipidemia. 5. History of allergies. 6. Status post hysterectomy. 7. Status post cholecystectomy. Plan: 1. Continue using PAP equipment every night for the whole night. 2. Sleep hygiene with regular time in bed for at least 7.5-8 hours 3. PAP unit should stay lower then position of the head. 4. Advised patient to remove all remaining water from humidifier canister daily and make it dry after each usage. Refill canister with fresh distilled water before each usage. 5. Watching weight. 6. Precautions related to driving. No driving if feel any sleepiness. 7. I will maintain prescription for PAP supplies including mask, tube, filters. 8. Follow up visit in 8 months or earlier if patient has any problems. Thank you very much for allowing me to participate in the management of your patient. Temo Torres MD, PhD, FAASM. Diplomat of [employer], Sleep Medicine Board by [employer] Gas Adjuster of [facility] [place] Objective - Vital Signs Vital Signs: Vital Signs Temp 97.5 F L 06/16/24 11:34 Pulse 88 06/16/24 11:34 Resp 16 06/16/24 11:34 BP 156/84 06/16/24 11:34 Pulse Ox 99 06/16/24 11:34 FiO2 Intake & Output 06/15/24 06/16/24 06/16/24 18:59 06:59 18:59 Weight 62.142 kg Home Medications: Home Medications Medication Instructions Recorded Confirmed Type Aspirin [Adult Low Dose Aspirin EC] 81 tbsp PO DAILY 08/21/17 11/22/21 History Simvastatin [Zocor] 20 tab PO DAILY 08/21/17 03/04/24 History atenoloL [Tenormin] 50 tab PO DAILY 08/21/17 03/04/24 History Multivitamin [Multivitamins Adult 1 each PO DAILY 10/01/18 11/22/21 History Gummies] Ubidecarenone [Co Q-10] 100 mg PO DAILY 10/01/18 11/22/21 History Calcium Carbonate/Vitamin D3 1 tab PO DAILY 09/03/19 11/22/21 History [Calcium 250-D Tablet] Repaglinide 1 mg PO BID 11/22/21 11/22/21 History lisinopriL [Zestril] 5 mg PO DAILY 11/22/21 03/04/24 History metFORMIN HCL 1,000 mg PO DAILY 11/22/21 11/22/21 History glipiZIDE/METFORMIN HCL See Rx Instructions .ROUTE .COMPLEX 11/13/23 03/04/24 History [glipiZIDE/METFORMIN HCL 5-500 mg] Ferrous Sulfate [Iron (65 MG 65 mg PO DAILY 03/04/24 03/04/24 History Elemental)]
== END ==
LOC: 3 N SLEEP 11:27
PROVIDERS: ATTEND Internal Medicine
DX: G47.33 Obstructive sleep apnea (adult) (pediatric) (principal); I10 Essential (primary) hypertension; E11.9 Type 2 diabetes mellitus without complications; E78.5 Hyperlipidemia, unspecified; Z90.710 Acquired absence of both cervix and uterus; Z90.49 Acquired absence of other specified parts of digestive tract; Z88.0 Allergy status to penicillin; Z88.9 Allergy status to unspecified drugs, medicaments and biological substances; Z99.89 Dependence on other enabling machines and devices
CPT/HCPCS: 99212